=== PATIENT | female | born 1980 | race Caucasian/White ===

== ENCOUNTER 2017-09-26 13:39 | Emergency (ER) | payer BC ==
[2017-09-26] MEDS ORDERED: NA CHLORIDE 0.9% 1,000 ML ONE (16:07)
[2017-09-26] MEDS ORDERED: DEXAMETHASONE 10 MG/ML VIAL ONE (16:07)
[2017-09-26 16:45] LABS: Absolute Lymphocytes (CBC) 2.4 K/uL (0.7-4.9); Absolute Monocytes 0.6 K/uL (0.1-1.3); Absolute Neutrophil 5.1 K/uL (1.8-8.0); Basophils % 0.9 % (0-1.3); Eosinophils % 0.9 % (0-4.4); Hematocrit 42.3 % (36.0-45.0); Lymphocytes % 28.8 % (15.3-44.8); MCH 27.6 pg (27.0-35.0); MCV 81.4 fL (80-100); MPV 8.6 fL (7.6-11.3); Monocytes % 6.9 % (3.3-12.3)
[2017-09-26 16:53] LABS: BUN Blood Urea Nitrogen 14 mg/dL (6-20); Bicarbonate 26 mEq/L (21-31); Glucose Level 91 mg/dL (65-120); Potassium 3.6 mEq/L (3.6-5.0); Sodium Level 139 mEq/L (135-145)
--- NOTE | 2017-09-26 17:23 | RAD REPORT ---
EXAM DESCRIPTION: CT - Soft Tissue Neck W/Contr - 09/26/2017 5:13 pm CLINICAL HISTORY: Neck pain and sore throat COMPARISON: None. TECHNIQUE: Computed axial tomography of the neck was obtained. 50 cc Isovue-300 administered intrave nously. Coronal and sagittal reconstruction was performed All CT scans are performed using dose optimization technique as appropriate and may include automated exposure control or mA/KV adjustment according to patient size. FINDINGS: The tonsils appear mildly prominent bilaterally. The parapharyngeal fat is clear. A perit onsillar abscess is not noted. The remainder of the pharynx, larynx, tongue base and subglottic trachea appear unremarkable. The parotid, submandibular and thyroid glands appear unremarkable. Subcentimeter neck lymph nodes are present bilaterally which are not considered significant. IMPRESSION: The tonsils bilaterally appear mildly prominent. This may indicate a mild tonsillitis.
--- NOTE | 2017-09-26 17:27 | RAD REPORT ---
EXAM DESCRIPTION: CT - Thorax W/ Con - 09/26/2017 5:17 pm CLINICAL HISTORY: Shortness of breath x1 month COMPARISON: 2009 TECHNIQUE: Computed axial tomography of the chest was obtained. 100 cc Isovue 300 was administered i ntravenously. All CT scans are performed using dose optimization technique as appropriate and may include automated exposure control or mA/KV adjustment according to patient size. FINDINGS: The lungs appear clear. No mediastinal or hilar lymphadenopathy is seen. A pleural effusion is not present. A pericardial effusion is not present IMPRESSION: Unremarkable examination
[2017-09-26 18:03] LABS: Urine Blood 2+ (NEG); Urine Glucose NEGATIVE (NEG); Urine Protein NEGATIVE (NEG); Urine pH 7.5 (5.0-7.0)
--- NOTE | 2017-09-26 18:14 | ER ---
Nurse's Notes [facility] Name: Nadia Garcia Age: 37 yrs Sex: Female : 1980 Arrival Date: 09/26/2017 Time: 13:42 Bed 13 Private MD: Diagnosis: Acute laryngitis Presentation: 09/26 13:46 Presenting complaint: Patient states: i had a hard time breathing that started a month hj ago; my throat feels tight; denies cough; denies pain and difficulty swallowing; denies fever and chills;. Transition of care: patient was not received from another setting of care. Onset of symptoms was September 26, 2017. Initial Sepsis Screen: Does the patient meet any 2 criteria? No. Patient's initial sepsis screen is negative. Does the patient have a suspected source of infection? No. Patient's initial sepsis screen is negative. Care prior to arrival: None. 13:46 Method Of Arrival: Ambulatory 13:46 Acuity: JALYN 3 hj Triage Assessment: 13:49 General: Appears in no apparent distress. comfortable, Behavior is calm, cooperative, hj appropriate for age. Pain: Denies pain. Respiratory: Reports shortness of breath Onset: The symptoms/episode began/occurred the patient has mild shortness of breath. 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 Denies injuries from another. Nutritional sg screening: No deficits noted. Tuberculosis screening: No symptoms or risk factors identified. Never had TB. Fall Risk None identified. Assessment: 13:50 Cardiovascular: Rhythm is regular. Respiratory: Airway is patent Respiratory effort is hj even, unlabored, Respiratory pattern is regular, symmetrical, Breath sounds are clear 15:15 General: Appears in no apparent distress. comfortable, well groomed, well developed, sg well nourished, Behavior is calm, cooperative, appropriate for age. Neuro: No deficits noted. Respiratory: Airway is patent Respiratory effort is even, unlabored, Respiratory pattern is regular, symmetrical, Breath sounds are clear. GI: No signs and/or symptoms were reported involving the gastrointestinal system. : No signs and/or symptoms were reported regarding the genitourinary system. EENT: Nares are clear bilaterally Oral mucosa is moist. Throat is pink. Derm: Skin is pink, warm \T\ dry. Musculoskeletal: No signs and/or symptoms reported regarding the musculoskeletal system. Vital Signs: 13:50 BP 136 / 67; Pulse 62; Resp 18; Temp 97.8(O); Pulse Ox 99% on R/A; Weight 120.2 kg; hj Height 5 ft. 6 in. (167.64 cm); Pain 0/10; 13:50 Body Mass Index 42.77 (120.20 kg, 167.64 cm) hj ED Course: 13:42 Patient arrived in ED. mr 13:48 Triage completed. hj 13:50 Arm band placed on left wrist. hj 13:55 No provider procedures requiring assistance completed. sg 14:50 Patient has correct armband on for positive identification. Bed in low position. Call sg light in reach. Side rails up X2. Pulse ox on. NIBP on. 15:11 William Mayorga, RN is Primary Nurse. sg 15:27 Eulalia Zayas FNP-C is PHCP. snw 15:27 Solo Leggett MD is Attending Physician. snw 15:54 Radiology exam delayed due to lab results not completed at this time. (BUN/Creatinine) j test not completed at this time. 16:40 Initial lab(s) drawn, by ri, sent to lab. Urine collected: clean catch specimen, clear. sg Inserted saline lock: 22 gauge in right forearm, using aseptic technique. Blood collected. 16:59 Patient moved to OK. jg1 17:13 CT completed. Patient tolerated procedure well. Patient moved back from OK. nj 17:13 CT Soft Tissue Neck W/contr In Process Unspecified. EDMS 17:13 CT Chest W/ Con In Process Unspecified. EDMS 18:13 Elissa Garcia MD is Referral Physician. snw 18:50 IV discontinued, intact, bleeding controlled, No redness/swelling at site. Pressure sg dressing applied. Administered Medications: 16:45 Drug: NS 0.9% 1000 ml Route: IV; Rate: 75 ml/hr; Site: right forearm; sg 16:45 Drug: Decadron - Dexamethasone 10 mg Route: IVP; Site: right forearm; sg Outcome: 18:13 Discharge ordered by . jeramy 18:50 Discharged to home ambulatory, with friend. sg 18:50 Condition: stable 18:50 Discharge instructions given to patient, Instructed on discharge instructions, follow up and referral plans. medication usage, safety practices, Demonstrated understanding of instructions, follow-up care, medications, Prescriptions given X 2. 18:51 Patient left the ED. em Signatures: Dispatcher [employer] EDWilliam Smith, RN RN Eulalia Rose, MANAGER UTILITIES-C MANAGER UTILITIES-Csnw Yenifer Salcedo mr Guillen, Kimberly jQuoc Hayes, MEDICINE TECHNOLOGIST MEDICINE TECHNOLOGIST em Jason Castro RN RN Odell Martino Corrections: (The following items were deleted from the chart) 13:52 13:50 Pulse 62bpm; Resp 18bpm; Pulse Ox 99% RA; Temp 97.8F Oral; 120.2 kg; Height 5 ft. hj 6 in.; BMI: 42.7; Pain 0/10; hj
--- NOTE | 2017-09-26 18:14 | EDPHYS ---
Physician Documentation [facility] Name: Nadia Garcia Age: 37 yrs Sex: Female : 1980 Arrival Date: 09/26/2017 Time: 13:42 Bed 13 Private MD: ED Physician Solo Leggett HPI: 09/26 16:05 This 37 yrs old Female presents to ER via Ambulatory with complaints of snw Breathing Difficulty. 16:05 The patient has shortness of breath feels unable to take a deep breath at the level of snw the anterior neck, denies choking episodes, denies fever. Onset: The symptoms/episode began/occurred gradually, 1 month(s) ago, and became worse and became persistent. The patient's shortness of breath is aggravated by nothing. Severity of symptoms: At their worst the symptoms were moderate. The patient has experienced similar episodes in the past, but today's symptoms are worse. The patient has been recently seen by a physician: the patient's primary care provider, yesterday, with similar presenting complaints, and was referred to a specialist. 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 Historical: - Allergies: 13:49 No Known Allergies; hj - Home Meds: 13:49 Nexium Oral [Active]; [place] Thyroid 60 mg Oral tab daily [Active]; - PMHx: 13:49 Hypothyroidism; - PSHx: 13:49 ; ROS: 16:03 Constitutional: Negative for fever, chills, and weight loss, Eyes: Negative for injury, snw pain, redness, and discharge, Cardiovascular: Negative for chest pain, palpitations, and edema, Respiratory: Negative for shortness of breath, cough, wheezing, and pleuritic chest pain, Abdomen/GI: Negative for abdominal pain, nausea, vomiting, diarrhea, and constipation, Back: Negative for injury and pain, : Negative for injury, bleeding, discharge, and swelling, MS/Extremity: Negative for injury and deformity, Skin: Negative for injury, rash, and discoloration, Neuro: Negative for headache, weakness, numbness, tingling, and seizure. 16:03 ENT: Positive for hoarseness, x 1 month, Negative for injury or acute deformity, ear pain, hearing loss, nasal discharge, rhinorrhea. 16:03 Neck: Positive for tenderness, of the chin, tightness. Exam: 16:03 Constitutional: This is a well developed, well nourished patient who is awake, alert, snw and in no acute distress. Head/Face: Normocephalic, atraumatic. Eyes: Pupils equal round and reactive to light, extra-ocular motions intact. Lids and lashes normal. Conjunctiva and sclera are non-icteric and not injected. Cornea within normal limits. Periorbital areas with no swelling, redness, or edema. ENT: Nares patent. No nasal discharge, no septal abnormalities noted. Tympanic membranes are normal and external auditory canals are clear. Oropharynx with no redness, swelling, or masses, exudates, or evidence of obstruction, uvula midline. Mucous membranes moist. Chest/axilla: Normal chest wall appearance and motion. Nontender with no deformity. No lesions are appreciated. Cardiovascular: Regular rate and rhythm with a normal S1 and S2. No gallops, murmurs, or rubs. Normal PMI, no JVD. No pulse deficits. Respiratory: Lungs have equal breath sounds bilaterally, clear to auscultation and percussion. No rales, rhonchi or wheezes noted. No increased work of breathing, no retractions or nasal flaring. Abdomen/GI: Soft, non-tender, with normal bowel sounds. No distension or tympany. No guarding or rebound. No evidence of tenderness throughout. Back: No spinal tenderness. No costovertebral tenderness. Full range of motion. Skin: Warm, dry with normal turgor. Normal color with no rashes, no lesions, and no evidence of cellulitis. MS/ Extremity: Pulses equal, no cyanosis. Neurovascular intact. Full, normal range of motion. Neuro: Awake and alert, GCS 15, oriented to person, place, time, and situation. Cranial nerves II-XII grossly intact. Motor strength 5/5 in all extremities. Sensory grossly intact. Cerebellar exam normal. Normal gait. 16:03 Neck: External neck: is normal, C-spine: appears grossly normal, Thyroid: appears normal, Lymph nodes: no appreciated lymphadenopathy, Hoarse voice. Vital Signs: 13:50 BP 136 / 67; Pulse 62; Resp 18; Temp 97.8(O); Pulse Ox 99% on R/A; Weight 120.2 kg; hj Height 5 ft. 6 in. (167.64 cm); Pain 0/10; 13:50 Body Mass Index 42.77 (120.20 kg, 167.64 cm) MDM: 15:31 Patient medically screened. snw 18:37 Data reviewed: vital signs, nurses notes. Data interpreted: Pulse oximetry: on room air snw is 99 %. Interpretation: normal. Counseling: I had a detailed discussion with the patient and/or guardian regarding: the historical points, exam findings, and any diagnostic results supporting the discharge/admit diagnosis, the presence of at least one elevated blood pressure reading (>120/80) during this emergency department visit, lab results, radiology results, the need for outpatient follow up, to return to the emergency department if symptoms worsen or persist or if there are any questions or concerns that arise at home. Special discussion: I have referred the patient to see his PCP for further evaluation of high blood pressure. Based on the history and exam findings, there is no indication for further emergent testing or inpatient evaluation. I discussed with the patient/guardian the need to see the ENT specialist for further evaluation of the symptoms. I discussed with the patient/guardian the need to see the primary care provider for further evaluation of the symptoms. 09/26 15:52 Order name: Test, Serum; Complete Time: 17:04 snw 09/26 15:52 Order name: CBC with Diff; Complete Time: 16:50 snw 09/26 15:52 Order name: CT Soft Tissue Neck W/contr; Complete Time: 18:12 snw 09/26 15:52 Order name: Chem 7; Complete Time: 17:04 snw 09/26 16:39 Order name: Urine Dipstick--Ancillary (enter results); Complete Time: 18:12 ag 09/26 16:39 Order name: Urine --Ancillary (enter results); Complete Time: 18:12 ag 09/26 15:52 Order name: CT Chest W/ Con; Complete Time: 18:12 snw Administered Medications: 16:45 Drug: NS 0.9% 1000 ml Route: IV; Rate: 75 ml/hr; Site: right forearm; sg 16:45 Drug: Decadron - Dexamethasone 10 mg Route: IVP; Site: right forearm; sg Disposition: 09/26/17 18:13 Discharged to Home. Impression: Acute laryngitis. - Condition is Stable. - Discharge Instructions: Laryngitis. - Prescriptions for Prednisone 20 mg Oral Tablet - take 2 tablet by ORAL route once daily for 5 days; 10 tablet. Pepcid 20 mg Oral Tablet - take 1 tablet by ORAL route once daily; 20 tablet. - Medication Reconciliation Form, Thank You Letter, Antibiotic Education, Prescription Opioid Use, Work release form form. - Follow up: Elissa Garcia MD; When: 1 week; Reason: Recheck today's complaints, Continuance of care. Addendum: 10/04/2017 19:57 Co-signature as Attending Physician, Solo Leggett MD I agree with the assessment and k dr plan of care. Signatures: Dispatcher [employer] William Gonzalez, RN RN Solo Leggett MD MD [facility] Eulalia Zayas, SNOW RANGER-C SNOW RANGER-Csnw Quoc Duong, CUSTODIAL OFFICER CUSTODIAL OFFICER em Jason Castro, RN RN hj Corrections: (The following items were deleted from the chart) 09/26 18:51 18:13 09/26/2017 18:13 Discharged to Home. Impression: Acute laryngitis. Condition is em Stable. Forms are Medication Reconciliation Form, Thank You Letter, Antibiotic Education, Prescription Opioid Use. Follow up: Elissa Garcia; When: 1 week; Reason: Recheck today's complaints, Continuance of care. snw
[2017-09-26 19:05] VITALS: BP 136/67; TEMP 97.8; O2SAT 99
== END 2017-09-26 18:51 | disposition home or self-care (01) ==
LOC: ER 13:39
DX: J04.0 Acute laryngitis (principal); E03.9 Hypothyroidism, unspecified
CPT/HCPCS: 36415; 70491; 71260; 80048; 81003; 81025; 84703; 85025; 96374; 99284; J1100; J7030; Q9967

== ENCOUNTER 2018-03-19 22:17 | Emergency (ER) | payer BC ==
--- OUTSIDE RECORDS SUMMARY | 2018-03-19 22:18 | XMS REPORT | Summary of Care ---
:1980 Author Organization [facility] Address [id number] [place] [id number] Encounter Encntr_alias(FIN) [id number] Date(s): 12/29/15 - 01/27/16 [facility] [id number] [place] [id number]- Discharge Disposition: Home or Self Care Attending Physician: Sudhakar Gomez MD Vital Signs No data available for this section Problem List No data available for this section Allergies, Adverse Reactions, Alerts No data available for this section Medications No data available for this section Results No data available for this section Immunizations No data available for this section Procedures No data available for this section Social History No data available for this section Assessment and Plan No data available for this section
[2018-03-19 23:19] LABS: Urine Blood TRACE (NEG); Urine Glucose NEGATIVE (NEG); Urine Protein 2+ (NEG); Urine Specific Gravity >1.030 (1.005-1.030)
[2018-03-19] MEDS ORDERED: DICYCLOMINE HCL 10 MG CAP ONE (23:19)
[2018-03-19] MEDS ORDERED: ONDANSETRON 4 MG/2 ML VIAL ONE (23:19)
[2018-03-19] MEDS ORDERED: NA CHLORIDE 0.9% 1,000 ML ONE (23:19)
[2018-03-19 23:41] LABS: Albumin 3.8 g/dL (3.4-5.0); Bilirubin Direct 0.2 mg/dL (0-0.2); Bilirubin Total 0.6 mg/dL (0.2-1.0); Potassium 3.2 mmol/L (3.5-5.1); Protein, Total 7.8 g/dL (6.4-8.2)
[2018-03-19 23:44] LABS: Absolute Lymphocytes (CBC) 0.6 K/uL (0.7-4.9); Absolute Monocytes 0.7 K/uL (0.1-1.3); Absolute Neutrophil 4.4 K/uL (1.8-8.0); Basophils % 0.6 % (0-1.3); Eosinophils % 0.6 % (0-4.4); Hematocrit 43.1 % (36.0-45.0); Lymphocytes % 10.3 % (15.3-44.8); MCH 28.5 pg (27.0-35.0); MCV 82.6 fL (80-100); MPV 9.5 fL (7.6-11.3); Monocytes % 11.6 % (3.3-12.3); RBC Red Blood Cell Count 5.22 M/uL (3.86-4.86)
[2018-03-20] MEDS ORDERED: POTASSIUM CL SA 10 MEQ TAB PO ONE (00:09)
--- NOTE | 2018-03-20 00:12 | ER ---
Nurse's Notes [facility] Name: Nadia Garcia Age: 37 yrs Sex: Female : 1980 Arrival Date: 03/19/2018 Time: 22:17 Bed 27 Private MD: Diagnosis: Diarrhea, unspecified;Dehydration Presentation: 03/19 22:21 Presenting complaint: EMS states: she has abdominal pain for a week now and, had mg2 diarrhea once today and passed out in the bathroom but denies head injury, she also reports n/v for the passed few days. BGL was 118 mg/dl, BP on scene sytolic of 90mmHg. IV fluid given. She is on augmentin for sinus infection. Transition of care: patient was not received from another setting of care. Onset of symptoms was March 2018. Risk Assessment: Do you want to hurt yourself or someone else? Patient reports no desire to harm self or others. Initial Sepsis Screen: Does the patient meet any 2 criteria? No. Patient's initial sepsis screen is negative. Does the patient have a suspected source of infection? No. Patient's initial sepsis screen is negative. Care prior to arrival: IV Fluid. 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 - Social history:: Smoking status: Patient/guardian denies using tobacco, Patient uses alcohol, occasionally. Patient/guardian denies using street drugs, IV drugs. - Ebola Screening: : No symptoms or risks identified at this time. Screenin:41 Abuse screen: Denies threats or abuse. Denies injuries from another. Nutritional mg2 screening: No deficits noted. Tuberculosis screening: No symptoms or risk factors identified. Fall Risk IV access (20 points). Assessment: 22:42 General: Appears in no apparent distress. comfortable, Behavior is calm, cooperative. mg2 Pain: Complains of pain in abdomen Pain does not radiate. Pain currently is 5 out of 10 on a pain scale. Quality of pain is described as aching, Pain began gradually. Neuro: Level of Consciousness is awake, alert, obeys commands, Oriented to person, place, time, situation. Cardiovascular: Capillary refill < 3 seconds Patient's skin is warm and dry. Respiratory: Airway is patent Respiratory effort is even, unlabored, Respiratory pattern is regular, symmetrical. GI: Reports lower abdominal pain, upper abdominal pain. : Urine is clear. EENT: No signs and/or symptoms were reported regarding the EENT system. Derm: Skin is intact, is healthy with good turgor, Skin is pink, warm \T\ dry. normal. Musculoskeletal: No signs and/or symptoms reported regarding the musculoskeletal system. 03/20 00:33 Reassessment: Patient appears in no apparent distress at this time. Patient and/or mg2 family updated on plan of care and expected duration. Pain level reassessed. Patient is alert, oriented x 3, equal unlabored respirations, skin warm/dry/pink. patient for discharge after completing the iv fluid. Vital Signs: 03/19 22:25 BP 115 / 74; Pulse 82; Resp 18; Temp 98.5; Pulse Ox 100% on R/A; Weight 115.67 kg; mg2 Height 5 ft. 6 in. (167.64 cm); Pain 5/10; 23:33 BP 115 / 68 Sitting; mg2 23:33 BP 120 / 70 Supine; mg2 23:33 BP 112 / 69 Standing; mg2 03/20 00:22 BP 113 / 60; Pulse 70; Resp 18; Pulse Ox 100% on R/A; Pain 0/10; mg2 03/19 22:25 Body Mass Index 41.16 (115.67 kg, 167.64 cm) mg2 ED Course: 03/19 22:17 Patient arrived in ED. mr 22:21 Wayne Valero PA is PHCP. jr8 22:21 Anthony Soriano MD is Attending Physician. jr8 22:21 Giancarlo Beltre, BIRGIT is Primary Nurse. mg2 22:25 Triage completed. mg2 22:29 Patient has correct armband on for positive identification. Pulse ox on. NIBP on. Door mg2 closed. Warm blanket given. 22:42 No provider procedures requiring assistance completed. Maintain EMS IV. Dressing mg2 intact. Good blood return noted. Site clean \T\ dry. Gauge \T\ site: 20 \T\ RAC. 22:43 Arm band placed on. mg2 03/20 00:50 IV discontinued, intact, bleeding controlled, No redness/swelling at site. Pressure mg2 dressing applied. Administered Medications: 03/19 23:33 Drug: NS 0.9% 1000 ml Route: IV; Rate: 1000 ml; Site: right antecubital; mg2 03/20 00:49 Follow up: Response: No adverse reaction; IV Status: Completed infusion mg2 03/19 23:33 Drug: Zofran 4 mg Route: IVP; Site: right antecubital; mg2 03/20 00:08 Follow up: Response: No adverse reaction; Marked relief of symptoms mg2 03/19 23:33 Drug: Bentyl 20 mg Route: PO; mg2 03/20 00:08 Follow up: Response: No adverse reaction; Marked relief of symptoms mg2 00:05 Drug: Potassium Chloride 40 mEq Route: PO; mg2 00:08 Follow up: Response: No adverse reaction mg2 Outcome: 00:11 Discharge ordered by jrSonam 00:50 Discharged to home ambulatory, with family. mg2 00:50 Condition: stable 00:50 Discharge instructions given to patient, family, Instructed on discharge instructions, follow up and referral plans. medication usage, Demonstrated understanding of instructions, follow-up care, medications, Prescriptions given X 2. 00:51 Patient left the ED. mg2 Signatures: Laxmi Salcedo BrittnynhanWayne garnett PA PA jr8 Giancarlo Beltre RN RN mg2 Corrections: (The following items were deleted from the chart) 03/19 22:25 22:21 Care prior to arrival: None. IV Fluid mg2 mg2 22:21 Method Of Arrival: EMS mg2 mg2 22:29 22:21 Presenting complaint: EMS states: she has abdominal pain for a week now and, had mg2 diarrhea once today and passed out in the bathroom but denies head injury, she also reports n/v for the passed few days. BGL was 118 mg/dl, BP on scene sytolic of 90mmHg. IV fluid given. mg2
--- NOTE | 2018-03-20 00:12 | EDPHYS ---
Physician Documentation [facility] Name: Nadia Garcia Age: 37 yrs Sex: Female : 1980 Arrival Date: 03/19/2018 Time: 22:17 Bed 27 Private MD: ED Physician Anthony Soriano HPI: 03/19 23:20 This 37 yrs old Female presents to ER via EMS with complaints of jr8 diarrhea/syncope . 23:20 The patient presents to the emergency department with diarrhea. Onset: The jr8 symptoms/episode began/occurred acutely, today. Possible causes: unknown. The symptoms are aggravated by nothing. The symptoms are alleviated by nothing. Associated signs and symptoms: Pertinent positives: syncope. Severity of symptoms: At their worst the symptoms were moderate in the emergency department the symptoms are unchanged. The patient has not experienced similar symptoms in the past. The patient has not recently seen a physician. Patient stated that she has been on Augmentin for the past 7 days for a sinus infection. Stated that today she woke up with abdominal cramping and multiple episodes of diarrhea. Has had chills on/off today as well. Denies fevers, nausea, or vomiting . 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 - Social history:: Smoking status: Patient/guardian denies using tobacco, Patient uses alcohol, occasionally. Patient/guardian denies using street drugs, IV drugs. - Ebola Screening: : No symptoms or risks identified at this time. ROS: 23:20 Eyes: Negative for injury, pain, redness, and discharge, ENT: Negative for injury, jr8 pain, and discharge, Neck: Negative for injury, pain, and swelling, Cardiovascular: Negative for chest pain, palpitations, and edema, Respiratory: Negative for shortness of breath, cough, wheezing, and pleuritic chest pain, Back: Negative for injury and pain, MS/Extremity: Negative for injury and deformity, Skin: Negative for injury, rash, and discoloration, Neuro: Negative for headache, weakness, numbness, tingling, and seizure. 23:20 Constitutional: Positive for chills, Negative for body aches, fatigue, fever, malaise, poor PO intake, weight loss. 23:20 Abdomen/GI: Positive for diarrhea, abdominal cramps, Negative for abdominal pain, nausea and vomiting, abdominal distension, anorexia, dysphagia, hematemesis, black/tarry stool, rectal pain, rectal bleeding, bowel incontinence, flatulence. Exam: 23:20 Eyes: Pupils equal round and reactive to light, extra-ocular motions intact. Lids and jr8 lashes normal. Conjunctiva and sclera are non-icteric and not injected. Cornea within normal limits. Periorbital areas with no swelling, redness, or edema. ENT: Nares patent. No nasal discharge, no septal abnormalities noted. Tympanic membranes are normal and external auditory canals are clear. Oropharynx with no redness, swelling, or masses, exudates, or evidence of obstruction, uvula midline. Mucous membranes moist. Neck: Trachea midline, no thyromegaly or masses palpated, and no cervical lymphadenopathy. Supple, full range of motion without nuchal rigidity, or vertebral point tenderness. No Meningismus. Cardiovascular: Regular rate and rhythm with a normal S1 and S2. No gallops, murmurs, or rubs. Normal PMI, no JVD. No pulse deficits. Respiratory: Lungs have equal breath sounds bilaterally, clear to auscultation and percussion. No rales, rhonchi or wheezes noted. No increased work of breathing, no retractions or nasal flaring. Abdomen/GI: Soft, non-tender, with normal bowel sounds. No distension or tympany. No guarding or rebound. No evidence of tenderness throughout. Back: No spinal tenderness. No costovertebral tenderness. Full range of motion. Skin: Warm, dry with normal turgor. Normal color with no rashes, no lesions, and no evidence of cellulitis. MS/ Extremity: Pulses equal, no cyanosis. Neurovascular intact. Full, normal range of motion. Neuro: Awake and alert, GCS 15, oriented to person, place, time, and situation. Cranial nerves II-XII grossly intact. Motor strength 5/5 in all extremities. Sensory grossly intact. Cerebellar exam normal. Normal gait. Vital Signs: 22:25 BP 115 / 74; Pulse 82; Resp 18; Temp 98.5; Pulse Ox 100% on R/A; Weight 115.67 kg; mg2 Height 5 ft. 6 in. (167.64 cm); Pain 5/10; 23:33 BP 115 / 68 Sitting; mg2 23:33 BP 120 / 70 Supine; mg2 23:33 BP 112 / 69 Standing; mg2 03/20 00:22 BP 113 / 60; Pulse 70; Resp 18; Pulse Ox 100% on R/A; Pain 0/10; mg2 03/19 22:25 Body Mass Index 41.16 (115.67 kg, 167.64 cm) mg2 MDM: 03/19 22:21 Patient medically screened. jr8 03/20 00:11 Data reviewed: vital signs, nurses notes, lab test result(s), and as a result, I will jr8 discharge patient. Data interpreted: Pulse oximetry: on room air is 100 %. Interpretation: normal. Counseling: I had a detailed discussion with the patient and/or guardian regarding: the historical points, exam findings, and any diagnostic results supporting the discharge/admit diagnosis, lab results, the need for outpatient follow up, a family practitioner, to return to the emergency department if symptoms worsen or persist or if there are any questions or concerns that arise at home. Response to treatment: the patient's symptoms have markedly improved after treatment, patient is well hydrated. 00:12 ED course: Antibiotic associated diarrhea vs GI viral enteritis or colitis. Told jr8 patient to stop antibiotics as the course has been long enough anyway. To keep hydrating and utilize Imodium as needed . 03/19 22:47 Order name: Urine Dipstick--Ancillary (enter results); Complete Time: 23:20 ms 03/19 22:47 Order name: Urine --Ancillary (enter results); Complete Time: 23:20 ms 03/19 23:05 Order name: Basic Metabolic Panel; Complete Time: 23:57 jr8 03/19 23:05 Order name: CBC with Diff; Complete Time: 23:57 jr8 03/19 23:05 Order name: Creatinine for Radiology; Complete Time: 23:57 jr8 03/19 23:05 Order name: Hepatic Function; Complete Time: 23:57 jr8 03/19 23:05 Order name: Lipase; Complete Time: 23:57 jr8 03/19 23:05 Order name: IV Saline Lock; Complete Time: 23:11 jr8 03/19 23:05 Order name: Labs collected and sent; Complete Time: 23: jr8 03/19 23:05 Order name: EKG - Nurse/Tech; Complete Time: jr8 03/19 23:05 Order name: Orthostatic Blood Pressure; Complete Time: : jr8 Administered Medications: 03/19 23:33 Drug: NS 0.9% 1000 ml Route: IV; Rate: 1000 ml; Site: right antecubital; mg2 03/20 00:49 Follow up: Response: No adverse reaction; IV Status: Completed infusion mg2 03/19 23:33 Drug: Zofran 4 mg Route: IVP; Site: right antecubital; mg2 03/20 00:08 Follow up: Response: No adverse reaction; Marked relief of symptoms mg2 03/19 23:33 Drug: Bentyl 20 mg Route: PO; mg2 03/20 00:08 Follow up: Response: No adverse reaction; Marked relief of symptoms mg2 00:05 Drug: Potassium Chloride 40 mEq Route: PO; mg2 00:08 Follow up: Response: No adverse reaction mg2 Disposition: 06:08 Co-signature as Attending Physician, Anthony Soriano MD I agree with the assessment and reynaldo plan of care. Disposition: 03/20/18 00:11 Discharged to Home. Impression: Diarrhea, unspecified, Dehydration. - Condition is Stable. - Discharge Instructions: Dehydration, Adult, Diarrhea, Adult. - Prescriptions for Bentyl 20 mg Oral Tablet - take 1 tablet by ORAL route every 6 hours As needed; 20 tablet. Zofran 4 mg Oral Tablet - take 1 tablet by ORAL route every 12 hours As needed; 20 tablet. - Medication Reconciliation Form, Thank You Letter, Antibiotic Education, Prescription Opioid Use form. - Follow up: Private Physician; When: 2 - 3 days; Reason: Recheck today's complaints, Continuance of care, Re-evaluation by your physician. - Problem is new. - Symptoms have improved. Signatures: Dispatcher [employer] Anthony Minaya MD MD cha Roszak, Josh, PA PA jr8 Giancarlo Beltre, RN RN mg2 Corrections: (The following items were deleted from the chart) 00:51 00:11 03/20/2018 00:11 Discharged to Home. Impression: Diarrhea, unspecified; mg2 Dehydration. Condition is Stable. Forms are Medication Reconciliation Form, Thank You Letter, Antibiotic Education, Prescription Opioid Use. Follow up: Private Physician; When: 2 - 3 days; Reason: Recheck today's complaints, Continuance of care, Re-evaluation by your physician. Problem is new. Symptoms have improved. jr8
[2018-03-20 00:56] VITALS: TEMP 98.5; O2SAT 100
[2018-03-20 00:58] VITALS: BP 113/60
--- NOTE | 2018-03-20 06:49 | EKG ---
Test Date: 2018-03-19 Test Time: 23:27:25 Store Receiving Specialist: MG MEASUREMENT RESULTS: Intervals: Rate: 74 KS: 144 QRSD: 90 QT: 378 QTc: 419 [place]: P: 43 KS: 144 QRS: 34 T: 28 INTERPRETIVE STATEMENTS: Normal sinus rhythm Nonspecific T wave abnormality Abnormal ECG No previous ECG available for comparison Electronically Signed On 03-20-18 06:49:00 CDT by Arnel Whitley
== END 2018-03-20 00:51 | disposition home or self-care (01) ==
LOC: ER 22:17
DX: E86.0 Dehydration (principal); E03.9 Hypothyroidism, unspecified
CPT/HCPCS: 36415; 80048; 80076; 81003; 81025; 83690; 85025; 93005; 96361; 96374; 99284; J2405; J7030

== ENCOUNTER 2021-02-23 23:08 | Emergency (ER) | payer BC ==
[2021-02-24 00:43] LABS: Urine Blood Negative (Negative); Urine Glucose Negative (Negative); Urine Protein Negative (Negative); Urine pH 6.5 (5.0-7.0)
[2021-02-24 00:56] LABS: Hematocrit 47.8 % (36.0-45.0); Lymphocytes % 15.7 % (15.3-44.8); RBC Red Blood Cell Count 5.66 M/uL (3.86-4.86)
[2021-02-24 01:08] LABS: Albumin 4.2 g/dL (3.4-5.0); Bilirubin Direct 0.3 mg/dL (0-0.2); Bilirubin Total 0.9 mg/dL (0.2-1.0); Potassium 3.4 mmol/L (3.5-5.1); Protein, Total 8.1 g/dL (6.4-8.2)
--- NOTE | 2021-02-24 03:17 | ER ---
Nurse's Notes [facility] Name: Nadia Garcia Age: 40 yrs Sex: Female : 1980 Arrival Date: 02/23/2021 Time: 23:12 Bed 26 Private MD: Diagnosis: Constipation;Nausea-Medication adverse effect Presentation: 02/23 23:36 Chief complaint: Patient states: She has been on Saxenda, a weight loss pill. States lh3 that she normally is pretty regular with having bowel movements 2x/day to now only 1 every 2/3 days. [place] nauseous this morning and just has not been able to go. denies pain, but just her butt hurts due to straining. Coronavirus screen: Vaccine status: Patient reports receiving the 2nd dose of the covid vaccine. Date July 2020. Ebola Screen: No symptoms or risks identified at this time. Initial Sepsis Screen: Does the patient meet any 2 criteria? No. Patient's initial sepsis screen is negative. Does the patient have a suspected source of infection? No. Patient's initial sepsis screen is negative. Risk Assessment: Do you want to hurt yourself or someone else? Patient reports no desire to harm self or others. Onset of symptoms was February 22, 2021. 23:36 Method Of Arrival: Ambulatory 3 23:36 Acuity: JALYN 3 3 Triage Assessment: 23:39 General: Appears in no apparent distress. Behavior is calm, cooperative, appropriate lh3 for age. Pain: Denies pain. GI: Reports constipation, nausea. 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 - Social history:: Smoking status: Patient denies any tobacco usage or history of. Screenin/25 04:27 Abuse screen: Denies. Nutritional screening: No deficits noted. wr 04:28 Tuberculosis screening: No symptoms or risk factors identified. wr Vital Signs: 02/23 23:36 BP 139 / 100; Pulse 80; Resp 18; Temp 98.1; Pulse Ox 100% ; Weight 122.47 kg; Height 5 [facility] ft. 8 in. (172.72 cm) (R); 02/24 04:00 BP 116 / 66; Pulse 75; Resp 21; Temp 98.8; Pulse Ox 100% ; wr 02/23 23:36 Body Mass Index 41.05 (122.47 kg, 172.72 cm) [facility] ED Course: 02/23 23:12 Patient arrived in ED. 23:39 Triage completed. 3 23:39 Arm band placed on left wrist. 3 23:55 Jonathon Gomez MD is Attending Physician. [facility] 02/24 00:35 Basic Metabolic Panel Sent. wr 00:35 CBC with Diff Sent. wr 00:36 Hepatic Function Sent. wr 00:36 Lipase Sent. wr 01:01 Basic Metabolic Panel Sent. ej 01:01 CBC with Diff Sent. ej 01:01 Hepatic Function Sent. ej 01:01 Lipase Sent. ej 01:59 CT Abd/Pelvis - IV Contrast Only In Process Unspecified. EDMS Administered Medications: No medications were administered Outcome: 03:16 Discharge ordered by . [facility] 04:37 Patient left the ED. Signatures: Dispatcher [employer] EDMS Jonathon Gomez MD MD 7 Arnoldo العلي PA PA ej Marsh, Wendy Breanne Alicia, BIRGIT RN 3 Dai Farias
--- NOTE | 2021-02-24 03:17 | EDPHYS ---
Physician Documentation [facility] Name: Nadia Garcia Age: 40 yrs Sex: Female : 1980 Arrival Date: 02/23/2021 Time: 23:12 Bed 26 Private MD: ED Physician Jonathon Gomez HPI: 02/24 00:04 This 40 yrs old Female presents to ER via Ambulatory with complaints of mh7 Constipation. 00:04 The patient presents with Constipation. mh7 00:04 Onset: The symptoms/episode began/occurred 3 day(s) ago. The symptoms do not radiate. mh7 Associated signs and symptoms: Pertinent positives: constipation, nausea, Pertinent negatives: anorexia, blood in stools, chest pain, diarrhea, dysuria, fever, headache, hematuria, palpitations, shortness of breath, vaginal discharge, vomiting, vomiting blood. The symptoms are described as No pain. Modifying factors: The symptoms are alleviated by nothing, the symptoms are aggravated by nothing. Severity of pain: At its worst the pain was No pain, in the emergency department the pain No pain. Patient states that she was started on radiation weight loss medication, Saxenda, recently has had constipation. He has also noticed some intermittent nausea but denies any vomiting. She denies any headache, chest pain, abdominal pain, diarrhea, shortness of breath, fever, dysuria, dizziness, numbness/tingling, or weakness.. 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 - Social history:: Smoking status: Patient denies any tobacco usage or history of. ROS: 02/24 00:04 Constitutional: Negative for fever, chills, and weight loss, Eyes: Negative for injury, mh7 pain, redness, and discharge, ENT: Negative for injury, pain, and discharge, Neck: Negative for injury, pain, and swelling, Cardiovascular: Negative for chest pain, palpitations, and edema, Respiratory: Negative for shortness of breath, cough, wheezing, and pleuritic chest pain, Back: Negative for injury and pain, : Negative for injury, bleeding, discharge, and swelling, MS/Extremity: Negative for injury and deformity, Skin: Negative for injury, rash, and discoloration, Neuro: Negative for headache, weakness, numbness, tingling, and seizure, Psych: Negative for depression, anxiety, suicide ideation, homicidal ideation, and hallucinations, Allergy/Immunology: Negative for hives, rash, and allergies, Endocrine: Negative for neck swelling, polydipsia, polyuria, polyphagia, and marked weight changes, Hematologic/Lymphatic: Negative for swollen nodes, abnormal bleeding, and unusual bruising. Exam: 00:04 Constitutional: This is a well developed, well nourished patient who is awake, alert, mh7 and in no acute distress. Head/Face: Normocephalic, atraumatic. Eyes: Pupils equal round and reactive to light, extra-ocular motions intact. Lids and lashes normal. Conjunctiva and sclera are non-icteric and not injected. Cornea within normal limits. Periorbital areas with no swelling, redness, or edema. Neck: Trachea midline, no thyromegaly or masses palpated, and no cervical lymphadenopathy. Supple, full range of motion without nuchal rigidity, or vertebral point tenderness. No Meningismus. Chest/axilla: Normal chest wall appearance and motion. Nontender with no deformity. No lesions are appreciated. Cardiovascular: Regular rate and rhythm with a normal S1 and S2. No gallops, murmurs, or rubs. Normal PMI, no JVD. No pulse deficits. Respiratory: Lungs have equal breath sounds bilaterally, clear to auscultation and percussion. No rales, rhonchi or wheezes noted. No increased work of breathing, no retractions or nasal flaring. Back: No spinal tenderness. No costovertebral tenderness. Full range of motion. Skin: Warm, dry with normal turgor. Normal color with no rashes, no lesions, and no evidence of cellulitis. MS/ Extremity: Pulses equal, no cyanosis. Neurovascular intact. Full, normal range of motion. Neuro: Awake and alert, GCS 15, oriented to person, place, time, and situation. Cranial nerves II-XII grossly intact. Motor strength 5/5 in all extremities. Sensory grossly intact. Cerebellar exam normal. Normal gait. Psych: Awake, alert, with orientation to person, place and time. Behavior, mood, and affect are within normal limits. 00:04 Abdomen/GI: Inspection: obese Bowel sounds: normal, in all quadrants, Palpation: mild mh7 abdominal tenderness, in the suprapubic area, right lower quadrant and left lower quadrant, mass, is not appreciated, rebound tenderness, is not appreciated, voluntary guarding, is not appreciated, involuntary guarding, is not appreciated, no appreciated organomegaly, Rectal exam: the exam is deferred, because of patient request, Indicators: McBurney's point is not tender, Smith's sign is negative, Rovsing's sign is negative, Obturator sign is negative, Psoas sign is negative, Liver: no appreciated palpable abnormalities, Hernia: not appreciated. Vital Signs: 02/23 23:36 BP 139 / 100; Pulse 80; Resp 18; Temp 98.1; Pulse Ox 100% ; Weight 122.47 kg; Height 5 lh3 ft. 8 in. (172.72 cm) (R); 02/24 04:00 BP 116 / 66; Pulse 75; Resp 21; Temp 98.8; Pulse Ox 100% ; wr 02/23 23:36 Body Mass Index 41.05 (122.47 kg, 172.72 cm) lh3 MDM: 03:13 Differential diagnosis: appendicitis, bowel obstruction, diverticulitis, Ectopic mh7 , non-specific abd pain, Ureterolithiasis, urinary tract infection. Data reviewed: vital signs, nurses notes, lab test result(s), amylase and lipase, CBC, electrolytes, urinalysis, UPT: negative radiologic studies, CT scan. Data interpreted: Pulse oximetry: on room air is 100 %. Interpretation: normal. Counseling: I had a detailed discussion with the patient and/or guardian regarding: the historical points, exam findings, and any diagnostic results supporting the discharge/admit diagnosis, lab results, radiology results, the need for outpatient follow up, to return to the emergency department if symptoms worsen or persist or if there are any questions or concerns that arise at home. Response to treatment: the patient's symptoms have resolved after treatment, the patient's blood pressure is in an acceptable range, mental status has returned to baseline, the patient no longer shows bradycardia, the patient is not short of breath, the patient is not tachycardic, the patient's pain is gone, the patient's temperature has normalized. 03:16 Patient medically screened. [facility] 02/24 00:03 Order name: Basic Metabolic Panel; Complete Time: 01:15 [facility] 02/24 00:03 Order name: CBC with Diff; Complete Time: 01:15 [facility] 02/24 00:03 Order name: Hepatic Function; Complete Time: :15 [facility] 02/24 00:03 Order name: Lipase; Complete Time: 01: [facility] 02/24 00:43 Order name: Urine Dipstick-Ancillary; Complete Time: 00:55 [facility] 02/24 01:38 Order name: Urine --Ancillary (enter results); Complete Time: 02: [facility] 02/24 00:03 Order name: IV Saline Lock; Complete Time: 00:35 [facility] 02/24 00:03 Order name: Labs collected and sent; Complete Time: 00:35 [facility] 02/24 00:03 Order name: Urine Dipstick-Ancillary (obtain specimen); Complete Time: 01: [facility] 02/24 00:03 Order name: Urine Test (obtain specimen); Complete Time: 01: [facility] 02/24 01:16 Order name: CT Abd/Pelvis - IV Contrast Only [facility] Administered Medications: No medications were administered Disposition Summary: 02/24/21 03:16 Discharge Ordered Location: Home [facility] Problem: new [facility] Symptoms: have improved [facility] Condition: Stable [facility] Diagnosis - Constipation [facility] - Nausea - Medication adverse effect [facility] Followup: [facility] - With: Private Physician - When: 2 - 3 days - Reason: Worsening of condition, Recheck today's complaints, Continuance of care, Re-evaluation by your physician Discharge Instructions: - Discharge Summary Sheet [facility] - Constipation, Adult, [id number] [facility] - Nausea, Adult, [id number] [facility] Forms: - Medication Reconciliation Form [facility] - Thank You Letter [facility] - Antibiotic Education [facility] - Prescription Opioid Use [facility] Prescriptions: - ondansetron 4 mg Oral tablet,disintegrating - place 1 tablet by TRANSLINGUAL route every 8 hours As needed; 10 tablet; [facility] Refills: 0, Product Selection Permitted Signatures: Dispatcher [employer] Jonathon Daily MD MD 7 Breanne Alicia, RN RN lh3
[2021-02-24 04:51] VITALS: O2SAT 100
[2021-02-24 04:52] VITALS: BP 116/66; TEMP 98.8
--- NOTE | 2021-02-26 11:58 | RAD REPORT ---
EXAM DESCRIPTION: CT Abdomen and Pelvis With Intravenous Contrast CLINICAL HISTORY: The patient is 40 years old and is Female; Abd pain;Constipation TECHNIQUE: Axial computed tomography images of the abdomen and pelvis with intravenous contrast. S agittal and coronal reformatted images were created and reviewed. This CT exam was performed using one or more of the following dose reduction techniques: automated exposure control, adjustment of t he mA and/or kV according to patient size, and/or use of iterative reconstruction technique. COMPARISON: No relevant prior studies available. FINDINGS: Lung bases: Unremarkable. No mass. No consolidation. ABDOMEN: Liver: Mild hepatomegaly with diffuse hepatic steatosis. Gallbladder and bile ducts: Unremarkable. No calcified stones. No ductal dilation. Pancreas: Unremarkable. No mass. No ductal dilation. Spleen: Unremarkable. No splenomegaly. Adrenals: Unremarkable. No mass. Kidneys and ureters: Unremarkable. No solid mass. No hydronephrosis. Stomach and bowel: Unremarkable. No obstruction. No mucosal thickening. PELVIS: Appendix: No findings to suggest acute appendicitis. Bladder: Unremarkable. No mass. Reproductive: IUD in the uterus. ABDOMEN and PELVIS: Intraperitoneal space: Unremarkable. No free air. No significant fluid collection. Bones/joints: No acute fracture. No dislocation. Soft tissues: Unremarkable. Vasculature: Unremarkable. No abdominal aortic aneurysm. Lymph nodes: Unremarkable. No enlarged lymph nodes. IMPRESSION: No acute findings in the abdomen or pelvis. Electronically signed by: Linwood Ramos MD 02/24/2021 2:37 AM CDT Due to temporary technical issues with the PACS/Fluency reporting system, reports are being signed by the in house radiologist without review as a courtesy to ensure prompt reporting. The interpreting r adiologist is fully responsible for the content of the report.
== END 2021-02-24 04:37 | disposition home or self-care (01) ==
LOC: ER 23:08
DX: K59.00 Constipation, unspecified (principal); R11.0 Nausea; T50.995A Adverse effect of other drugs, medicaments and biological substances, initial encounter
CPT/HCPCS: 85025; 80048; 36415; 81025; 80076; 81003; 83690; 74177; 99283; Q9967